=== PATIENT | male | born 1965 | race Caucasian/White ===

== ENCOUNTER 2017-01-09 12:32 | Inpatient (IN) | payer MEDICARE ==
[~2017-01-09] VITALS: Ht 175.3 cm; Wt 118.5 kg
[2017-01-09] MEDS ORDERED: Alum-Mag Hydrox-Simeth 30 mL Suspension PO PRN (15:25)
[2017-01-09] MEDS ORDERED: hydrOXYzine Pamoate 25 mg Capsule PO PRN (15:25)
[2017-01-09] MEDS ORDERED: Magnesium Hydroxide 10 mL Oral Concentration PO PRN (15:25)
[2017-01-09] MEDS ORDERED: Benzocaine-Menthol Lozenge 2/Pkg PO PRN (15:25)
[2017-01-09 17:44] VITALS: BP 126/83; PULSE 88
--- NOTE | 2017-01-09 18:11 | NUR ---
Nursing: Admission note: Vinicius arrived by ambulance from [facility] at 1410. He was able to alight from [facility] and walk without difficulty to the interview room. He was alert, cooperative, verbally responsive and had good eye contact with insurance writer during interview. No evidence of anxiety noted. (Pt has had multiple hospitalizations in past.) Gave reason for hospitalization as "I have a no-harm contract with my mom and the psychiatrist not to kill myself and I need to be here to stay safe". Increased suicidal thinking began on Sunday. Has been in [facility] ED since Sunday evening. Signed no-harm contract readily. At 1440, rated SI at 8/10, depression at 7/10, and Anxiety at 4.5/10. Admits to hearing a loud male voice that comes and goes but tells him to suicide by overdose. Three previous attempts to suicide. All overdoses. Last one in 2003. "I had to have a trach, and got MRSA..." Lives with supportive mom and sister. By 1800, pt was sitting in dining room among peers. A: Depressed. Suicidal. Familiar with hospitalization routines.
[2017-01-09 21:45] VITALS: BP 118/80; PULSE 91; RESP 20
--- NOTE | 2017-01-10 03:43 | NUR ---
MIRYAM/NOC PT spent several hours in the miryam in the day room. This RN spoke with pt for about 45 minutes. PT rated his depression at 7/10. SI at 7/10. Denies any anxiety. PT has contracted for safety. PT states that "the voices are loud in his head and are telling him to OD." Spoke extensively about his past depression treatment, including ECT many times. PT states that his depression has been minimal the past 3 months since he started his new medication, referencing Lalo. This RN called DR Wheeler to get his home meds resumed and pt took HS meds per usual. PT has been sleeping well through the night so far. WIll continue with current POC and monitor for any A/R to meds.
--- NOTE | 2017-01-10 05:01 | NUR ---
Observations 1900 - 0700 Pt was in D.R. sitting quietly when the shift started. Pt was social with select peers. Pt was pleasant, polite and cooperative when approached. Pt maintained behavior throughout the shift. Pt speech was good but very soft. Pt eye contact was ok. Pt ate snack. Pt first appeared asleep at 2315 and has slept through the night. Pt was observed every 15 minutes through the night as ordered.
[2017-01-10 08:00] VITALS: BP 122/86; PULSE 91; RESP 16
[2017-01-10] MEDS: CARIPRAZINE 3 MG PO SCH (08:44)
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
--- NOTE | 2017-01-10 13:10 | NUR ---
nursing note: "The voices are really bad right now." Pt has been out in the day room all morning, "Because if I stay in my room, they get really bad." and this is how he contracts for safety. (the voices are all about harming himself) He has gone almost 3 days w/o his Clozaril because of extended time in an ER prior to coming here, which may be exacerbating his symptoms. He has been able to stay out of psych unit almost this 6 months and has been doing fairly well. He has a good support network in his temple and tries to have activity every day to keep him busy and socially engaged., but sometimes he "just starts getting sad and crying all the time..."and comes in for a medications adjustment and safety. He has met with his physician and has requested an visit from the dynamics ax solution architect. When asked for ways I can support him with recreational supplies, he just wanted to watch tv and this was done
--- NOTE | 2017-01-10 15:21 | NUR ---
Obs Dayshift Pt has remained out in the milieu most of the day to remain safe on the unit, voice are very bad today telling him to do self harm. Pt is polite, calm, reasonable, engages well w/ peers and staff. Pt is participating and appropriate on the unit, attends every group offered. Pt is hopeful that a med change will help w/ the SI and AH. Good ADL's, Good meals
--- NOTE | 2017-01-10 18:29 | NUR ---
assistant kitchen manager/Counselor: S: "I'm very active with my jehovah's witness." O: Patient slept 7 hours last night per staff. Patient reports thoughts of suicidal ideation with command hallucinations. He denies H/I. He reports hearing voices that are a "screaming man's voice" telling him to hurt himself. He denies visual hallucinations. A: Patient is cooperative, pleasant, hopeless, helpless, depressed, anxious, poor insight, poor judgment. P: Follow care plan, coordinate with out-patient providers, monitor behavior.
[2017-01-10] MEDS ORDERED: CARI3CAP PO (23:21)
[2017-01-10] MEDS ORDERED: PRAZ5CAP3 PO (23:21)
[2017-01-10] MEDS ORDERED: ATOR10TA66 PO (23:21)
[2017-01-10] MEDS ORDERED: [UNRECOGNIZED DRUG - CODE] PO (23:21)
--- NOTE | 2017-01-10 23:22 | NUR ---
Nursing: Evening shift: S: I don't need any medication. Rough day. O: Vinicius has been sitting in the dining room much of the shift. Facial expression is flat/distressed. Good eye contact when approached by staff. Does not have behaviors indicative of attending to internal stimuli but had told staff earlier that when he is having difficulty with voices, he stays in the open unit. Rated his day at [facility] as only 3/10. At 2100, pt appeared anxious. Was offered hyroxyzine but refused. A: Remains suicidal and is hearing voices. P: Continue to assess for safety. Addendum: 01/11/17 at 0003 by NOLAN GRAMAJO RN Amended: Links added.
--- NOTE | 2017-01-11 04:11 | NUR ---
nursing, nights, 11-7 s/o- has appeared to sleep after 2244 during q 15 minute assessments. a- no apparent distress. p- monitor behavior/emotional state, quality, times and amount of sleep, use and effect of medication. soraya
[2017-01-11] MEDS: CARIPRAZINE 3 MG PO SCH ×2 (07:51→08:30)
[2017-01-11 07:56] VITALS: BP 127/86; PULSE 90; RESP 16
--- NOTE | 2017-01-11 10:08 | NUR ---
nursing note: Continues suicidal with the voices,"really bad...they're screaming and my depression is really bad." He does say he was able to sleep last noc with a couple of wake ups but able to get back to sleep w/o problem. He continues to stay out in the day room as part of his safety plan and participates. His appetite and ADLs are good. He declines a number of offers for activities to occupy himself, "No I'm ok". He is looking forward to meeting with the clinical material handler today and has requested to be able to allow his mother to visit tomorrow afternoon because of driving distances and her needing to get a ride. is aware. Addendum: 01/11/17 at 1436 by JENNIFER GUTIERREZ RN cont'd: has ok'd a visit from mom outside of visiting hours. is here visiting w/ pt currently. He reports that earlier Tylenol for ORTEGA was effective.
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
--- NOTE | 2017-01-11 16:11 | NUR ---
spiritual care: pt request conversational visit. pt shared details of his coping through structured schedule, many social supports and active ministry in [place]. Normal conversational style as pt shared his good family support, close relationships with several pastors and strongly-grounded anaya that finds expression in social ministry such as distributing coffee, food and offering love and attention to those on the margins. Pt described having a difficult day and also his hopefulness about med tune up that will help him feel better. insightful, hopeful, calm. Prayer and pt appreciative of rec. table top prayer cards.
--- NOTE | 2017-01-11 16:52 | NUR ---
Observations [id number] Pt spent much of the day in the dining area, appearing internally preoccupied at times. Friendly with peers and staff. Pt attended Community Meeting and group. Pt also attended all meals, eating 100%. He mentioned to this remote mortgage underwriter that "it's better to be out here then isolate to my room and think of all the ways I could try to kill myself." Pt met with Roger and enjoyed their visit. He was observed every 15 minutes of shift as directed.
--- NOTE | 2017-01-11 18:17 | NUR ---
business line manager/Counselor: S: "I don't take benzos." O: Patient slept 7 hours last night per staff. Patient reports that he still has thoughts of suicidal ideation with command hallucinations. He reports the voices are "really loud today." He denies H/I. He denies visual hallucinations. Depression is 8.5/10 and anxiety is 6/10. A: Patient is cooperative, pleasant, depressed, anxious, poor insight, poor judgment. P: Follow care plan, coordinate with out-patient providers, monitor behavior.
--- NOTE | 2017-01-11 22:54 | NUR ---
Nurses Note Evening Patient has remained in the dining melissa the entire shift. He continued to experience auditory hallucinations commanding him to harm himself. Patient stays in the community to ground himself to remain safe. After visiting with the asic engineer, patients' affect brightened as well as his mood smiling easily in conversations with staff. Will continue to maintain q 15min. checks for safety and support. Addendum: 01/11/17 at 3474 by ALISIA DAVIS RN Amended: Links added.
--- NOTE | 2017-01-12 04:49 | NUR ---
nursing, nights, 11-7 s/o- has appeared to sleep after 2214 during q 15 minute assessments. a- no apparent distress. p- monitor behavior/emotional state, quality, times and amount of sleep, use and effect of medication. soraya
[2017-01-12] MEDS: CARIPRAZINE 3 MG PO SCH (08:20)
--- NOTE | 2017-01-12 13:00 | PROG NOTE ---
[address] [address] PROGRESS NOTE PATIENT: SHAI DAVILA : 1965 MR#: [id number] ADMIT: 01/09/2017 JOB ID: [id number] DATE: 01/12/2017 CHIEF COMPLAINT: "I am just feeling very suicidal, the voices are really bad this morning." HISTORY OF THE PRESENT ILLNESS: As stated above, the patient did openly identify to myself and the case consultant, RODNEY, that he is currently struggling with intrusive thoughts and voices telling him to kill himself. He was quite tearful, distraught. He indicated that there was no specific trigger. He did identify that yesterday he did have a very positive afternoon after meeting with the pastoral halfway house counselor. He indicated that he was optimistic and upbeat. He did inform me that his mother would be coming in for a visit, along with his sister, later on today. He remains somewhat negative and stuck in his negative thought process. He was encouraged to utilize alternative coping skills which identify as prayer and devotional activities. The patient readily identified that his support system, including his mentor through his local orth[employer], is often his resource and that he has place calls with voicemail. OBJECTIVE: On mental status exam, the patient was somewhat distraught. He was flat on interaction, tearful. His speech is of normal tone, frequency, and volume. His mood is depressed. His affect is blunted. His thought process shows no evidence of racing thoughts, flight of ideas, loose or disconnected thinking. His thought content: He readily identifies significant suicidal ideation. He denies any specified intent or plan in the hospital setting. He did admit to auditory voices telling him to kill himself and that he is not worthy. No evidence of paranoia. He was alert, oriented to time and place. His insight and judgment were deemed as fair. PHYSICAL EXAMINATION: Vital signs are current: Temperature is 36.1, pulse 90, respirations 16, BP 127/86. MEDICATION REVIEW: Includes Prazosin 20 mg q.h.s., Vraylar 3 mg daily, Clozaril 450 mg q.h.s. ASSESSMENT: [place] I: 1. Major depressive disorder, recurrent type. 2. Generalized anxiety disorder. 3. Schizoaffective disorder, depressed type by history. 4. Post-traumatic stress disorder, chronic. [place] II: Rule out cluster B personality features. [place] III: None. [place] IV: Stressors are noted for chronic disturbance of depression, struggles with anxiety. [place] V: Global Assessment of Functioning of current 30. PLAN: 1. Recommendations for continuation of DBT curriculum. 2. Recommendations for probable discharge on Sunday of next week with return to his outpatient counseling, medication management.
[2017-01-12 13:10] VITALS: BP 122/81; PULSE 93; RESP 16
--- NOTE | 2017-01-12 13:16 | NUR ---
Nursing Note [id number] Mood, Behavior S/O: Pt took medications as ordered. Pt ate 100% of breakfast & lunch. Pt attended groups this morning. He was out in the milieu "because I'm trying to stay busy," he stated. Pt reports depression at a "8 1/2 or 9" on a scale of 1-10/10 the worst. He endorses frequent suicidal thoughts today, but said he would be safe here. Pt appears nervous. He is restless with reddened eyes. He stated, "I don't want any benzos....I'm not trying to be difficult....I have 13 years of sobriety & don't want anything that will make me relapse." Pt given Vistaril 50 mg Addendum: 01/12/17 at 1325 by MARY MAX RN given at 1243. Pt's mother & sister her to visit during the day with MD approval. A: Pt con't to have suicidal ideation & would be unable to keep himself safe in the community. P: Provide supportive environment. Monitor medications & effects.
--- NOTE | 2017-01-12 18:00 | NUR ---
RUST Day Shift Pt maintained behavioral control throughout the shift. Pt affect appears mostly flat, brighter when engaged with staff and peers. Pt spends most of the shift sitting quietly and lightly interacting with peers in the dining room. Pt is pleasant with staff and peers when active on the unit. Pt attended community meeting in the AM, but did not attend group activities. Pt attended all meals and ate approx 100% of all meals.
--- NOTE | 2017-01-12 19:18 | NUR ---
technical program manager/Counselor: S: "I'm really suicidal today, I really want to ." O: Patient slept 7.5+ last night. Patient reports passive thoughts of suicide but does not have a plan. He denies H/I. He reports that the voices are still loud today. He denies visual hallucinations. He did not rate depression and anxiety. A: Patient is cooperative, euthymic, tangential, suspicious, paranoid, limited insight, limited judgment. P: Follow care plan, coordinate with out-patient providers.
--- NOTE | 2017-01-12 22:56 | NUR ---
NURSING NOTE [id number] Mood: "very anxious" Affect: depressed but brightens in conversation and did laugh a few times Behavior: visible sitting in the DR at a table by himself, not seen interacting much w/peers, watched TV off and on. He does attend all groups and reports he enjoys doing so. Pt. reports he is making an effort to stay out of his room today as the voices are "worse when I'm in there by myself." He is med compliant. Thought process: endorsed command AH to kill himself via overdose of psychiatric medications. Reports he has felt suicidal all day but is adamant that he has no intent and that he "made a promise to my doctor 14 years ago I wouldn't hurt myself again and I'm standing by it." Endorsed depression and anxiety. Reports the Vistaril PRN earlier today did not help his anxiety but that he will never take benzos. Reports that his mother and sister's visit earlier today made him feel "a lot better and more hopeful."
--- NOTE | 2017-01-13 05:26 | NUR ---
Nursing notes: overnight houseperson Patient appears to be sleeping on safety checks during the night. Voices no complaints.
[2017-01-13] MEDS: CARIPRAZINE 3 MG PO SCH (08:28)
[2017-01-13 10:55] VITALS: BP 133/79; PULSE 98
--- NOTE | 2017-01-13 12:02 | PROG NOTE ---
[address] [address] PROGRESS NOTE PATIENT: SHAI DAVILA : 1965 MR#: [id number] ADMIT: 01/09/2017 JOB ID: [id number] DATE: 01/13/2017 CHIEF COMPLAINT: "I had a very good visit with my mom and sister. It was nice to get caught up." HISTORY OF PRESENT ILLNESS: As stated above, also did identify that he had a very positive visit with his mom and sister. He indicates that they talked about various things going on in the community. He reports that it was very nice to get some support, and he reports that it improved his outlook. He indicates that he slept well last evening. He has been participating in group activities this morning and indicates that the voices are not as bad. OBJECTIVE: On mental status exam, he was bright, cooperative, interactive. He denies any evidence of acute distress. His speech is of normal tone, frequency and volume. He denies any evidence of current suicidal or homicidal ideation at this time. He indicated that seeing his mother and sister really helped. He denied any active hallucinations or delusions. He was alert, oriented to time, place, situation. Attention and concentration intact. Memory intact in the short term, skilled nursing, recent. Insight and judgment are fair. PHYSICAL EXAMINATION: Vital signs are current. Temperature is 36.3, pulse 93, respirations 16, BP 122/81. MEDICATION REVIEW: Includes: 1. Pravastatin 20 mg q.h.s. 2. Vraylar 3 mg daily. 3. Clozapine 450 mg q.h.s. 4. P.r.n. doses of Vistaril. ASSESSMENT: AXIS I 1. Major depressive disorder, recurrent type, nonpsychotic. 2. Posttraumatic stress disorder, chronic. 3. Schizoaffective disorder, depressed type by history. AXIS II Cluster B personality features. AXIS III None. AXIS IV Stressors are noted for chronic disturbance of depression, struggles with anxiety, history of trauma. AXIS V Global Assessment of Functioning current 35. PLAN: 1. Recommendation is for continuation of DBT curriculum and supportive therapies. 2. Continuation of all medications as noted. 3. Continuation of pursuit of discharge on Sunday with a return to his outpatient programming.
--- NOTE | 2017-01-13 14:27 | NUR ---
Nursing Note [id number] Mood, Behavior S/O: Pt has good appetite. Pt states, "I'm feeling better today." Pt rates his depression at a "4" on a scale of 1-10/10 the best. Pt denies suicidal ideation. Pt con't to hear voices, but states, "They're quieter." Pt has been pleasant & cooperative with peers & staff. Pt takes medications as ordered. Out in milieu for distraction. A: Pt improved since yesterday. P: Provide supportive environment. Monitor medications & effects. Monitor for mood stabilization.
--- NOTE | 2017-01-13 19:54 | NUR ---
OBSERVATIONS Pt was pleasant and cooperative, spent the day in common areas, watching television, periodically socializing with peers. Maintained Q15 safety checks as directed.
--- NOTE | 2017-01-14 05:22 | NUR ---
Nursing Noc Pt pleasant and social this evening spending time watching TV or talking with pears. Reports best day today. Taking medications as directed. Noted to have optimal sleep pattern this shift. Continuing to monitor mood behavior and emotional state. Q15 minute safety checks performed. CP
[2017-01-14] MEDS: CARIPRAZINE 3 MG PO SCH (08:07)
[2017-01-14 09:51] VITALS: BP 112/80; PULSE 87; RESP 16
--- NOTE | 2017-01-14 13:01 | NUR ---
Nursing Note [id number] Behavior, Mood S/O: Pt has good appetite. Pt out in milieu with peers. Pt requested to watch [employer] service on television. Pt appropriate with peers. Conversation tracking clear & organized with normal rate & rhythm. Pt reports increased anxiety from yesterday at a "4" on a scale of 1-10/10 the worst. He endorses his mood has been generally improving, but not as good as it was yesterday. He c/o a headache this morning at a "4" on a scale of 1-10/10 the worst. He thinks it's related to lack of caffeine. Pt given Tylenol 650 mg this morning. Pt reports headache is "a little better." He rated it at a "3." A: Pt's depression con't improve slowly. P: Provide supportive environment. Monitor medications & effects. Monitor for mood stability.
--- NOTE | 2017-01-14 13:31 | PROG NOTE ---
[address] [address] PROGRESS NOTE PATIENT: SHAI DAVILA : 1965 MR#: [id number] ADMIT: 01/09/2017 JOB ID: [id number] DATE: 01/14/2017 CHIEF COMPLAINT: "I am having a much better day." This is per patient report. HISTORY OF PRESENT ILLNESS: As stated above, the patient did identify that he is having a very positive day. He indicated that he had a positive visit yesterday with his mother and sister, spoke with his best friend on the telephone and his all around patternmaker, and stated that this morning he has already been given a book by nursing staff to read per Wilver Johnson. He indicates that he is optimistic about the future and looking forward to discharge on Sunday. He reports that he hopes that he can get back to [place] to arrange for his Sunday night Bible study group. OBJECTIVE: On mental status exam, he was bright, cooperative, interactive. He denied any evidence of acute distress. His speech is of normal tone, frequency, and volume. His mood is neutral. Affect is congruent. His thought process shows no evidence of racing thoughts, flight of ideas, loose or disconnected thinking. Thought content: He denied any evidence of current suicidal, homicidal ideation. No evidence of active hallucinations, delusions. He was alert, oriented to person, place, time, situation. Attention and concentration intact. Memory intact in the short term, detention, recent. Insight and judgment are gaining. PHYSICAL EXAM: Vital signs are current. Temperature is 35.8, pulse 87, respirations 16, BP 112/80. MEDICATION REVIEW: Includes: 1. Pravastatin 20 mg q.h.s. 2. Clozaril 450 mg daily. ASSESSMENT: Clemmons I. 1. Major depressive disorder, recurrent type, nonpsychotic. 2. Schizoaffective disorder, by history depressed type. 3. Posttraumatic stress disorder, chronic. Clemmons II. Cluster B personality features. Clemmons III. None. Clemmons IV. Stressors are noted for chronic disturbance of mental health. Clemmons V. GAF current 40. PLAN: 1. Recommendations to discharge on Sunday. 2. Continuation of aftercare followup as previously noted.
--- NOTE | 2017-01-14 18:04 | NUR ---
[facility] Day Shift Pt maintained behavioral control throughout the shift. Pt affect appears mostly flat, brighter when engaged with staff and peers. Pt spends most of the shift sitting quietly and lightly interacting with peers in the dining room. Pt is pleasant with staff and peers when active on the unit. Pt attended AM group activity, but declined to attend afternoon group activity. Pt attended all meals and ate approx 100% of all meals.
--- NOTE | 2017-01-14 21:43 | NUR ---
NURSING NOTE [id number] Mood: "I'm okay" Affect: pleasant, polite, cooperative Behavior: pt. has been visible in the DR for the entirety of the shift, reading his book or watching TV w/peers. He is more interactive and social, appears brighter. Med compliant. Thought processes: pt. reports he feels he is improving here, that his meds are effective, continues to hear AH but denies SI or command AH to kill himself. Pt. reports he looks forward to discharging on Sunday and feels he will be ready to go.
--- NOTE | 2017-01-15 05:00 | NUR ---
Nursing Note Propellant Charge Loader 11pm to 7am Pt asleep at start of shift and slept the duration of the night. No complaints voiced or observed. Pt monitored with q15 min face checks for safety, location and accountability.
[2017-01-15] MEDS: CARIPRAZINE 3 MG PO SCH (07:50)
[2017-01-15 11:07] VITALS: BP 114/88; PULSE 92; RESP 17
--- NOTE | 2017-01-15 13:21 | NUR ---
Obs Dayshift Pt is engaging w/ peers and staff. Polite, calm, participating well on the unit and w/ groups. Pt is appropriate, and reasonable. Pt states that he is feeling much better and very appreciative of staff and Dr. Pt states that he is now an 8/10, 10 being the best mood possible. Pt is smiling, and hopeful. DC planning for tomorrow early afternoon. Good ADL's, Good meals
--- NOTE | 2017-01-15 13:42 | NUR ---
Nursing Notes [id number] S: "I am doing very well today-I get to go home tomorrow"! "I really, really like Dr Wheeler". "I have been hospitalized a number of times and he is probably the best psychiatrist I have met"! O: Rated mood today as 8/10. Looking forward to discharge and attending some of his advent activities. A: Brighter affect/future oriented, interacting appropriately with peers. Smiling. P: Monitor for response to treatment. Q 15 min checks for safety. Follow plan of care.to treatment. Follow
--- NOTE | 2017-01-15 15:27 | NUR ---
Concrete Batcher/Counselor S:"I'm great now that I get to go home tomorrow!" O: Patient did not express any SI, HI, AVH, and no depression or anxiety. A: Patient will be discharged on 01/16/17. He attended structured group on "Looking Back and Looking Forward", and "Past and Future Hands". Patient actively participated and was able to list achievements from the past as well as establish some future achievement goals. Patient was very pleasant and cooperative and stated that he was very excited to go home, and is looking forward to things getting better from here on out. He expressed is appreciation towards the doctors and the rest of the staff, and stated that his has been the most helpful in patient stay he's had. P: Follow care plan and coordinate with outpatient providers.
--- NOTE | 2017-01-15 16:27 | NUR ---
spiritual care; follow up brief visit following up from last week conversation. Pt pleasant, shared his discharge plan including his hope to get home in time for nondenominational activities tomorrow. Stated he is feeling better, interacting with peer in tv room. thanked me for my visit and prayer cards.
--- NOTE | 2017-01-15 18:58 | PROG NOTE ---
[address] [address] PROGRESS NOTE PATIENT: SHAI DAVILA : 1965 MR#: [id number] ADMIT: 01/09/2017 JOB ID: [id number] CORRECTED REPORT: DATE: 01/15/2017 CHIEF COMPLAINT: "I am really excited about getting out of here tomorrow, I have a lot of things to do." This is per patient report. HISTORY OF PRESENT ILLNESS: As stated above, the patient identified significant improvement with his mood. He indicated that he has plans for tomorrow. His mother will be picking him up around noon. MENTAL STATUS EXAM: His speech was of normal tone, frequency, and volume. His mood was neutral. Affect was full and bright. His thought process shows no evidence of racing thoughts, flight of ideas, loose or disconnected thinking. His thought content: He denied any evidence of current suicidal, homicidal ideation. No evidence of active hallucinations, delusions. He was alert, oriented to time and place. Attention and concentration intact. Insight and judgment are gaining. PHYSICAL EXAM: Vital signs of current: Temperature is 36.3, pulse 92, respirations 17, BP 114/88. MEDICATION REVIEW: Includes: 1. Prazosin 20 mg q.h.s. 2. Vraylar 3 mg daily. 3. Clozaril 450 mg q.h.s. ASSESSMENT: Ketchum I1. Major depressive disorder, recurrent type, nonpsychotic. 2. Posttraumatic stress disorder, chronic. 3. Schizoaffective disorder, depressed type. Ketchum IICluster B personality features. Ketchum IIINone. Ketchum IVStressors are noted for chronic mental health issues, significant history of trauma. Ketchum VGlobal assessment of functioning currently 40. PLANS: 1. Recommendation is to discharge to outpatient care tomorrow. 2. Continuation of all medications as noted. Corrected by VINICIO 01/17/17 at 1:12pm DOS.
--- NOTE | 2017-01-16 05:09 | NUR ---
Nursing Shift Stock Saw Operator 11pm to 7am Pt asleep at start of shift and remained asleep for the duration of the night. Pt monitored q 15 minutes for safety location and accountability Addendum: 01/16/17 at 0511 by YUMIKO VILLANUEVA RN Error- Note entered on wrong pt.
--- NOTE | 2017-01-16 05:56 | NUR ---
Sleep Adequate sleep through the night with no noted distress. He slept from [id number] for a total of 6.75 hours. Pt remains calm and cooperative during waking hours.
[2017-01-16] MEDS: CARIPRAZINE 3 MG PO SCH (08:36)
--- NOTE | 2017-01-16 10:10 | PCM.DIMED ---
Discharge Instructions Date of Service Jan 16, 2017 Dates of Hospitalization Jan 09, 2017 at 14:10 Discharge Diagnosis Discharge Diagnosis Major Depression Recurrent nonpsychotic PTSD chronic Schizoaffective DO Depressed type Diet Discharge Diet: No restrictions Activity Discharge Activity: No restrictions Doroteo Wheeler DO Jan 16, 2017 10:10
[2017-01-16 12:37] VITALS: BP 127/80; PULSE 90; RESP 15
--- NOTE | 2017-01-16 13:15 | NUR ---
Discharge Patient ambulated from unit accompanied by staff. Patient returning home where he lives with mother and sister. Patient displaying brighter affect, denies current anxiety, depression, suicidal ideation, homicidal ideation or hallucinations. Patient caring for his own activities of daily living while on unit. Patient very visible in dining room, attending groups, socializing with peers and staff appropriately. Discharge instructions/medications reviewed with patient prior to discharge. All questions addressed. Patient belongings, home medication and discharge instructions in hand. No prescriptions written. Follow up appointments scheduled (see therapeutic case manager notes).
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
--- NOTE | 2017-01-16 15:18 | NUR ---
Assembler Bonding/Counselor S:I'm so grateful for the care here." O: Patient denied any SI, HI, no AVH and no depression/anxiety. A: Patient was discharged at 1230, and picked up by his mom. He was pleasant and cooperative. He was provided with all necessary paperwork and has been set up with 's appts for follow up care. He expressed his gratefulness several times and thanked staff for their care. He is hopeful for the future. P: Provide patient with all necessary discharge instructions.
== END 2017-01-16 12:30 | disposition home or self-care (01) | DRG 885 ==
LOC: MHC 14:10
PROVIDERS: ADMIT Psychiatry & Neurology Psychiatry; ATTEND Psychiatry & Neurology Psychiatry
DX: F33.2 Major depressive disorder, recurrent severe without psychotic features (principal); F43.12 Post-traumatic stress disorder, chronic; F41.1 Generalized anxiety disorder; F25.1 Schizoaffective disorder, depressive type